=== PATIENT | male | born 1940 | race Caucasian/White ===

== ENCOUNTER 2018-09-26 13:26 | Inpatient (IN) | payer MEDICARE, BC ==
[~2018-09-26] VITALS: Ht 177.8 cm; Wt 117.8 kg
[~2018-09-26 13:26] MED LIST: ASPIRIN 32325 MG/TAB PO; ASPIRIN 81M81 MG/TA2 PO; BENICAR HCT 12.1 TA1 PO; BENICAR HCT 12.1 TAB PO; CRESTOR20 MG PO; FERROUS SU325 MG/TAB PO; FLOMAX 0.40.4 MG/CAP PO; LOPRESSOR 225 MG/TAB PO; NIACIN500 M3 PO; NIASPAN500 MG PO; PRAVACHOL 20MG20 MG PO; PRINZIDE 12.5 M1 TA1 PO; PRINZIDE 12.5 M1 TAB PO; THE MEDICINE S200 M2 PO; VITAMIN D 1001000 IU PO; VITAMIN D1000 IU PO; VYTORIN; ZYLOPRIM 100MG100 MG PO
[2018-09-26 13:28] VITALS: BP 113/70; PULSE 106; TEMP 98
[2018-09-26 17:16] LABS: BASO # 0.1 (0.0-0.2); BASO % 0.3 % (0.0-2.0); EOS % 0.2 % (0-4.0); GRAN # 13.8 (1.4-6.5); GRAN % 78.7 % (42.2-75.2); LYMPH # 1.5 (1.2-3.4); LYMPH % 8.5 % (20.0-51.0); MEAN CELL VOLUME 94 fl (80.0-100.0); MEAN CORPUSCULAR HGB CONC 32 g/dl (33.0-37.0); MONO # 1.4 (0.1-0.6); PLATELET COUNT 140 K/mm3 (130-400); RED BLOOD COUNT 2.98 M/mm3 (4.20-5.60); REDCELL DISTRIBUTION WIDTH-CV 16.1 % (11.5-14.5)
[2018-09-26 17:17] LABS: HEMATOCRIT 28.1 % (42.0-52.0); HEMOGLOBIN 9.1 g/dl (13.5-18.0); MEAN CORPUSCULAR HEMOGLOBIN 31 pg (27.0-31.0)
[2018-09-26 17:18] VITALS: BP 120/67; PULSE 85; TEMP 98.7
[2018-09-26 17:26] LABS: CREATININE, serum 1.71 mg/dL (0.66-1.25); MAGNESIUM 1.7 mg/dL (1.6-2.3); POTASSIUM 4.8 mmol/L (3.4-5.0)
[2018-09-26 19:43] VITALS: BP 108/64; PULSE 119; TEMP 98.9
[2018-09-26 22:24] VITALS: BP 115/71; PULSE 111; TEMP 98.7
[2018-09-26 23:06] VITALS: BP 110/66; PULSE 112; TEMP 99.4
[2018-09-26 23:25] LABS: HEMATOCRIT 24.5 % (42.0-52.0); HEMOGLOBIN 8.1 g/dl (13.5-18.0)
[2018-09-27] VITALS (16 sets, daily range): BP systolic 105–133; BP diastolic 54–82; PULSE 96–124; TEMP 97.9–99.3
[2018-09-27 06:39] LABS: CALCIUM 7.6 mg/dL (8.4-10.2); CREATININE, serum 1.77 mg/dL (0.66-1.25); MAGNESIUM 1.7 mg/dL (1.6-2.3); POTASSIUM 4.4 mmol/L (3.4-5.0)
[2018-09-27 06:42] LABS: MEAN CELL VOLUME 93 fl (80.0-100.0); MEAN CORPUSCULAR HGB CONC 33 g/dl (33.0-37.0); PLATELET COUNT 143 K/mm3 (130-400); RED BLOOD COUNT 2.19 M/mm3 (4.20-5.60); REDCELL DISTRIBUTION WIDTH-CV 16.9 % (11.5-14.5)
[2018-09-27 07:00] LABS: HEMATOCRIT 20.4 % (42.0-52.0); HEMOGLOBIN 6.7 g/dl (13.5-18.0); MEAN CORPUSCULAR HEMOGLOBIN 31 pg (27.0-31.0)
[2018-09-27 08:02] LABS: BAND 9 % (0-10); EOSINOPHIL 1 % (0-4); LYMPHOCYTE 9 % (20.0-51.0); METAMYELOCYTE 3 % (0-0); MYELOCYTE 1 % (0-0); NEUTROPHILS 74 % (42.0-75.2); OVALOCYTES 1+; PLATELET ESTIMATE NORMAL (NORMAL)
[2018-09-27 20:12] LABS: HEMATOCRIT 20.2 % (42.0-52.0); HEMOGLOBIN 6.7 g/dl (13.5-18.0)
[2018-09-28] VITALS (12 sets, daily range): BP systolic 114–135; BP diastolic 52–72; PULSE 87–99; TEMP 97.8–99.4
[2018-09-28 04:45] LABS: MEAN CELL VOLUME 93 fl (80.0-100.0); MEAN CORPUSCULAR HGB CONC 33 g/dl (33.0-37.0); MEAN PLATELET VOLUME 9.5 fl (7.4-10.4); PLATELET COUNT 106 K/mm3 (130-400); RED BLOOD COUNT 2.27 M/mm3 (4.20-5.60); REDCELL DISTRIBUTION WIDTH-CV 17.2 % (11.5-14.5)
[2018-09-28 04:47] LABS: HEMATOCRIT 21.2 % (42.0-52.0); MEAN CORPUSCULAR HEMOGLOBIN 31 pg (27.0-31.0)
[2018-09-28 05:08] LABS: ANISOCYTOSIS 2+; BAND 5 % (0-10); EOSINOPHIL 1 % (0-4); LYMPHOCYTE 16 % (20.0-51.0); METAMYELOCYTE 3 % (0-0); NEUTROPHILS 70 % (42.0-75.2); OVALOCYTES 2+; POLYCHROMASIA 1+
[2018-09-28 05:09] LABS: CALCIUM 7.7 mg/dL (8.4-10.2); CREATININE, serum 1.76 mg/dL (0.66-1.25); MAGNESIUM 1.9 mg/dL (1.6-2.3); POTASSIUM 4.1 mmol/L (3.4-5.0)
[2018-09-28 05:39] LABS: COLLECTION METHOD CLEAN CATCH
[2018-09-28 05:46] LABS: PH 6 (5-8); SQUAMOUS EPITHELIAL None Seen /hpf; URINE APPEARANCE Clear; URINE BACTERIA None Seen /hpf; URINE BILIRUBIN Negative (NEGATIVE); URINE BLOOD Negative (NEGATIVE); URINE COLOR Straw; URINE GLUCOSE Negative (NEGATIVE); URINE KETONE Negative (NEGATIVE); URINE LEUKOCYTE ESTERASE Negative (NEGATIVE); URINE NITRATE Negative (NEGATIVE); URINE PROTEIN(semi-quant) Negative (NEGATIVE); URINE UROBILINOGEN Negative (NEGATIVE)
[2018-09-28 17:16] LABS: HEMATOCRIT 23.8 % (42.0-52.0); HEMOGLOBIN 8.2 g/dl (13.5-18.0)
[2018-09-29] VITALS (11 sets, daily range): BP systolic 99–125; BP diastolic 51–73; PULSE 79–119; TEMP 97.9–99
[2018-09-29 08:38] LABS: MEAN CELL VOLUME 92 fl (80.0-100.0); MEAN CORPUSCULAR HGB CONC 33 g/dl (33.0-37.0); MEAN PLATELET VOLUME 9.9 fl (7.4-10.4); PLATELET COUNT 141 K/mm3 (130-400); RED BLOOD COUNT 2.24 M/mm3 (4.20-5.60); REDCELL DISTRIBUTION WIDTH-CV 16.9 % (11.5-14.5)
[2018-09-29 08:58] LABS: HEMATOCRIT 20.7 % (42.0-52.0); HEMOGLOBIN 6.9 g/dl (13.5-18.0); MEAN CORPUSCULAR HEMOGLOBIN 31 pg (27.0-31.0)
[2018-09-29 09:09] LABS: CALCIUM 8.1 mg/dL (8.4-10.2); CREATININE, serum 1.65 mg/dL (0.66-1.25); POTASSIUM 4.1 mmol/L (3.4-5.0)
[2018-09-29 09:59] LABS: BAND 9 % (0-10); BASOPHIL 1 % (0-2); EOSINOPHIL 5 % (0-4); LYMPHOCYTE 11 % (20.0-51.0); METAMYELOCYTE 1 % (0-0); MYELOCYTE 4 % (0-0); NEUTROPHILS 67 % (42.0-75.2); OVALOCYTES 1+; PLATELET ESTIMATE NORMAL (NORMAL); TEAR DROP CELLS 1+
[2018-09-29 18:26] LABS: HEMATOCRIT 21.8 % (42.0-52.0); HEMOGLOBIN 7.5 g/dl (13.5-18.0)
[2018-09-30] VITALS (14 sets, daily range): BP systolic 98–129; BP diastolic 52–74; PULSE 89–100; TEMP 96.4–98.7
[2018-09-30 06:28] LABS: MEAN CELL VOLUME 90 fl (80.0-100.0); MEAN CORPUSCULAR HGB CONC 34 g/dl (33.0-37.0); MEAN PLATELET VOLUME 10.1 fl (7.4-10.4); PLATELET COUNT 137 K/mm3 (130-400); RED BLOOD COUNT 2.28 M/mm3 (4.20-5.60); REDCELL DISTRIBUTION WIDTH-CV 16.6 % (11.5-14.5)
[2018-09-30 06:32] LABS: CALCIUM 8.1 mg/dL (8.4-10.2); CREATININE, serum 1.62 mg/dL (0.66-1.25); HEMATOCRIT 20.6 % (42.0-52.0); MEAN CORPUSCULAR HEMOGLOBIN 31 pg (27.0-31.0); POTASSIUM 3.8 mmol/L (3.4-5.0)
[2018-09-30 07:06] LABS: BAND 11 % (0-10); EOSINOPHIL 2 % (0-4); LYMPHOCYTE 11 % (20.0-51.0); METAMYELOCYTE 3 % (0-0); MYELOCYTE 1 % (0-0); NEUTROPHILS 64 % (42.0-75.2)
[2018-09-30 07:07] LABS: PLATELET ESTIMATE NORMAL (NORMAL)
[2018-09-30 07:08] LABS: ANISOCYTOSIS 1+
[2018-10-01 03:54] VITALS: BP 117/70; PULSE 90; TEMP 97.6
[2018-10-01 07:02] LABS: HEMATOCRIT 22.9 % (42.0-52.0); HEMOGLOBIN 7.6 g/dl (13.5-18.0); MEAN CELL VOLUME 93 fl (80.0-100.0); MEAN CORPUSCULAR HEMOGLOBIN 31 pg (27.0-31.0); MEAN CORPUSCULAR HGB CONC 33 g/dl (33.0-37.0); MEAN PLATELET VOLUME 9.5 fl (7.4-10.4); PLATELET COUNT 142 K/mm3 (130-400); RED BLOOD COUNT 2.46 M/mm3 (4.20-5.60); REDCELL DISTRIBUTION WIDTH-CV 16.6 % (11.5-14.5)
[2018-10-01 07:18] LABS: CREATININE, serum 1.59 mg/dL (0.66-1.25); POTASSIUM 3.7 mmol/L (3.4-5.0)
[2018-10-01 07:37] VITALS: BP 121/64; PULSE 78; TEMP 98.8
[2018-10-01 07:59] LABS: BAND 6 % (0-10); EOSINOPHIL 5 % (0-4); LYMPHOCYTE 20 % (20.0-51.0); METAMYELOCYTE 1 % (0-0); NEUTROPHILS 63 % (42.0-75.2); PLATELET ESTIMATE NORMAL (NORMAL)
[2018-10-01 08:00] LABS: HYPOCHROMIA 1+; POLYCHROMASIA 1+
[2018-10-01 11:14] VITALS: BP 109/54; PULSE 95; TEMP 98
[2018-10-01 13:25] LABS: HEMATOCRIT 24.1 % (42.0-52.0); HEMOGLOBIN 7.9 g/dl (13.5-18.0)
[2018-10-01 15:42] VITALS: BP 110/38; PULSE 100; TEMP 98.1
[2018-10-01 19:33] VITALS: BP 136/83; PULSE 99; TEMP 98.5
[2018-10-02 00:30] VITALS: BP 116/71; PULSE 89; TEMP 98.8
[2018-10-02 04:30] VITALS: BP 112/48; PULSE 89; TEMP 98.1
[2018-10-02 07:27] LABS: HEMATOCRIT 24.4 % (42.0-52.0); HEMOGLOBIN 7.8 g/dl (13.5-18.0); MEAN CELL VOLUME 95 fl (80.0-100.0); MEAN CORPUSCULAR HEMOGLOBIN 30 pg (27.0-31.0); MEAN CORPUSCULAR HGB CONC 32 g/dl (33.0-37.0); PLATELET COUNT 165 K/mm3 (130-400); RED BLOOD COUNT 2.58 M/mm3 (4.20-5.60)
[2018-10-02 07:36] VITALS: BP 123/67; PULSE 87; TEMP 98.5
[2018-10-02 07:36] LABS: CALCIUM 8.5 mg/dL (8.4-10.2); CREATININE, serum 1.48 mg/dL (0.66-1.25); POTASSIUM 3.8 mmol/L (3.4-5.0)
[2018-10-02 08:35] LABS: ANISOCYTOSIS 1+; BAND 6 % (0-10); EOSINOPHIL 7 % (0-4); HYPOCHROMIA 1+; LYMPHOCYTE 19 % (20.0-51.0); NEUTROPHILS 62 % (42.0-75.2); NUCLEATED RED BLOOD CELL 1 (0-6); PLATELET ESTIMATE NORMAL (NORMAL)
[2018-10-02 08:36] LABS: POLYCHROMASIA 1+
== END 2018-10-02 12:31 | disposition home or self-care (01) | DRG 378 ==
LOC: MEDICAL 13:26
PROVIDERS: Hospitalist; Internal Medicine; Internal Medicine Gastroenterology; Physician Assistant
PROC: 0DJ08ZZ Inspection of Upper Intestinal Tract, Via Natural or Artificial Opening Endoscopic (ICD-10-PCS; principal; 2018-09-27 16:15)
PROC: 0DJD8ZZ Inspection of Lower Intestinal Tract, Via Natural or Artificial Opening Endoscopic (ICD-10-PCS; 2018-09-27 16:15)
DX: K57.31 Diverticulosis of large intestine without perforation or abscess with bleeding (principal); D62 Acute posthemorrhagic anemia; R00.0 Tachycardia, unspecified; R11.2 Nausea with vomiting, unspecified; R53.81 Other malaise; E78.5 Hyperlipidemia, unspecified; N18.9 Chronic kidney disease, unspecified; I35.0 Nonrheumatic aortic (valve) stenosis; M10.9 Gout, unspecified; I12.9 Hypertensive chronic kidney disease with stage 1 through stage 4 chronic kidney disease, or unspecified chronic kidney disease
CPT/HCPCS: 99223-AI; 99232-AI; 99233-AI; 99239; A4216; C9113; J0696; J2704; J7030; P9016

== ENCOUNTER 2019-08-24 16:22 | Inpatient (IN) | payer MEDICARE, BC ==
[~2019-08-24] VITALS: Ht 180.3 cm; Wt 99.4 kg
[2019-08-24] VITALS (239 sets, daily range): BP systolic 112–127; BP diastolic 76–91; PULSE 98–113; TEMP 98.5–98.6; O2SAT 84–99
--- NOTE | 2019-08-24 18:00 | NUR ---
Patient arrives to ICU with [facility]. LR bolus, liter #2 infusing. He is alert and oriented with no complaints. Patient attached to cardio-resp monitor, call light within reach, oriented to room. Dr. Shine and Dr. Rivera called to notify of arrival.
[2019-08-24] MEDS ORDERED: LEXAPRO 10MG10 MG PO (18:39)
[2019-08-24] MEDS ORDERED: LOPRESSOR 225 MG/TAB PO (18:39)
--- NOTE | 2019-08-24 19:30 | NUR ---
Shift report given to QUAN Rhodes. Care turned over at this time.
--- NOTE | 2019-08-24 19:45 | NUR ---
Central line placement completed. Confirmed placement with Chest XRay.
[2019-08-24 20:45] LABS: ARTERIAL BLD GAS O2 SATURATION 93.8 % (92-100); ARTERIAL BLD GAS TCO2 CT 22.6; ARTERIAL BLOOD GAS HCO3 21.6 meq/L (22-26); ARTERIAL BLOOD GAS PCO2 33.5 mmHg (35-45); ARTERIAL BLOOD GAS PO2 72.9 mmHg (80-100); ARTERIAL BLOOD GAS pH 7.43 (7.35-7.45)
[2019-08-24 20:50] LABS: HEMATOCRIT 37.6 % (42.0-52.0); HEMOGLOBIN 12.3 g/dl (13.5-18.0); MEAN CELL VOLUME 88 fl (80.0-100.0); MEAN CORPUSCULAR HEMOGLOBIN 29 pg (27.0-31.0); MEAN CORPUSCULAR HGB CONC 33 g/dl (33.0-37.0); MEAN PLATELET VOLUME 9.9 fl (7.4-10.4); PLATELET COUNT 197 K/mm3 (130-400); RED BLOOD COUNT 4.26 M/mm3 (4.20-5.60); REDCELL DISTRIBUTION WIDTH-CV 18.6 % (11.5-14.5)
[2019-08-24 21:04] LABS: ALBUMIN 4.3 gm/dL (3.5-5.0); BILIRUBIN,TOTAL 0.9 mg/dL (0.0-1.0); CALCIUM 9.4 mg/dL (8.4-10.2); CREATININE, serum 2.35 (0.66-1.25); POTASSIUM 4.3 mmol/L (3.4-5.0)
[2019-08-24 21:05] LABS: INR 1.1 (0.8-3.0); PROTHROMBIN TIME 12.7 SECONDS (9.7-12.8)
[2019-08-24 21:15] LABS: TROPONIN-I 0.033 ng/mL (0.000-0.035)
[2019-08-24 22:17] LABS: BAND 5 % (0-10); LYMPHOCYTE 5 % (20.0-51.0); NEUTROPHILS 80 % (42.0-75.2); PLATELET ESTIMATE NORMAL (NORMAL)
[2019-08-24 22:18] LABS: OVALOCYTES 2+
[2019-08-24 22:19] LABS: TOXIC GRANULATION PRESENT
[2019-08-25] VITALS (735 sets, daily range): BP systolic 108–140; BP diastolic 61–90; PULSE 81–101; TEMP 98–99; O2SAT 81–98
[2019-08-25 05:25] LABS: BASO % 0.3 % (0.0-2.0); GRAN # 10.6 (1.4-6.5); GRAN % 88.7 % (42.2-75.2); HEMOGLOBIN 10.7 g/dl (13.5-18.0); LYMPH # 0.5 (1.2-3.4); LYMPH % 3.8 % (20.0-51.0); MEAN CELL VOLUME 90 fl (80.0-100.0); MEAN CORPUSCULAR HEMOGLOBIN 29 pg (27.0-31.0); MEAN CORPUSCULAR HGB CONC 32 g/dl (33.0-37.0); MEAN PLATELET VOLUME 9.6 fl (7.4-10.4); MONO # 0.7 (0.1-0.6); MONO % 5.9 % (1.7-9.3); PLATELET COUNT 165 K/mm3 (130-400); RED BLOOD COUNT 3.69 M/mm3 (4.20-5.60); REDCELL DISTRIBUTION WIDTH-CV 18.5 % (11.5-14.5)
[2019-08-25 05:27] LABS: ARTERIAL BLD GAS O2 SATURATION 95.4 % (92-100); ARTERIAL BLD GAS TCO2 CT 24.9; ARTERIAL BLOOD GAS BASE EXCESS -1.2 (-2-2); ARTERIAL BLOOD GAS HCO3 23.7 meq/L (22-26); ARTERIAL BLOOD GAS PCO2 40.3 mmHg (35-45); ARTERIAL BLOOD GAS PO2 81.5 mmHg (80-100); ARTERIAL BLOOD GAS pH 7.39 (7.35-7.45)
--- NOTE | 2019-08-25 05:30 | NUR ---
STARTED INSULIN DRIP, DOUBLE CHECKED WITH QUAN LORA.
[2019-08-25 05:36] LABS: HEMATOCRIT 33.3 % (42.0-52.0)
[2019-08-25 05:38] LABS: ALBUMIN 3.6 gm/dL (3.5-5.0); BILIRUBIN,TOTAL 0.7 mg/dL (0.0-1.0); CALCIUM 8.3 mg/dL (8.4-10.2); CREATININE, serum 2.14 (0.66-1.25); POTASSIUM 4.5 mmol/L (3.4-5.0); TOTAL PROTEIN 6.1 gm/dL (6.4-8.2)
[2019-08-25 05:41] LABS: INR 1.1 (0.8-3.0); PROTHROMBIN TIME 12.3 SECONDS (9.7-12.8)
--- NOTE | 2019-08-25 08:45 | NUR ---
AND TEAM ROUNDING AT PATIENT BEDSIDE.
--- NOTE | 2019-08-25 09:52 | NUR ---
Initial visit; Patient thanked Refrigerator Assembler for looking in on him and offering God's blessings.
--- NOTE | 2019-08-25 16:12 | NUR ---
STROKE BELT SANDER OPERATOR student met with the patient to discuss a discharge plan. The patient lives in [place] with his , Sloane. The patient has a cane and a walker and reports independence with ADLs. The patient's PCP is Dr. Mcguire and patient receives medications from [facility] in [place] with no difficulties. The patient has advanced directives in the EMR. The patient plans to return home upon discharge with Sloane providing transportation. business services director will continue to follow to ensure a safe discharge.
--- NOTE | 2019-08-25 17:00 | NUR ---
INCREASED FENTANYL DRIP TO [facility].
--- NOTE | 2019-08-25 19:33 | NUR ---
Report called to Candida GLASS. Transfered to room 318 via wheel chair by Robert GLASS
--- NOTE | 2019-08-25 21:00 | NUR ---
Patient admitted to medical floor from ICU. Patient stated he has been in the room for awhile. Staff was not notified of patient arrival. Emotional support given to patient, as he was a little upset because of this. Denies pain. VS stable. Urostomy site leaking, site reinforced per pt request. Adapter applied to end of urostomy bag to drain into de la fuente bag at night, per pt request. Right IJ flushed, patent. HR irregular, with some pauses upon auscultation. Murmur also noted. Will notify Dr. Rogers, and obtain order for tele. Patient denies further needs at this time. Will continue to monitor.
[2019-08-26 01:28] VITALS: BP 100/54; PULSE 93; TEMP 97.6
[2019-08-26 03:40] VITALS: BP 109/65; PULSE 92; TEMP 97.6
--- NOTE | 2019-08-26 03:52 | NUR ---
Per telemetry, patient having frequent pauses on tele. Patient in bed, sleeping. Arouses easily, oriented x4. Denies pain. VS stable. Dr. Rogers notified of frequent pauses auscultated on admission assessment, which resulted in tele being ordered. Will continue to assess.
--- NOTE | 2019-08-26 05:49 | NUR ---
Patient in bed, awake. Breath sounds wheezy. Auscultated lungs, clear. Patient denies SOB. Oxygen had fallen off per pt, 91% on room air. Oxygen placed on patient, 94% on 2L (previously on 3L). Denies further needs at this time, will continue to monitor.
[2019-08-26 07:13] LABS: MEAN CELL VOLUME 94 fl (80.0-100.0); MEAN CORPUSCULAR HGB CONC 31 g/dl (33.0-37.0); MEAN PLATELET VOLUME 10.5 fl (7.4-10.4); PLATELET COUNT 141 K/mm3 (130-400); RED BLOOD COUNT 3.33 M/mm3 (4.20-5.60); REDCELL DISTRIBUTION WIDTH-CV 18.3 % (11.5-14.5)
[2019-08-26 07:17] LABS: HEMATOCRIT 31.2 % (42.0-52.0); HEMOGLOBIN 9.6 g/dl (13.5-18.0); MEAN CORPUSCULAR HEMOGLOBIN 29 pg (27.0-31.0)
[2019-08-26 07:19] LABS: PROTHROMBIN TIME 12.2 SECONDS (9.7-12.8)
[2019-08-26 07:34] LABS: ALBUMIN 3.1 gm/dL (3.5-5.0); BILIRUBIN,TOTAL 0.4 mg/dL (0.0-1.0); CALCIUM 8.1 mg/dL (8.4-10.2); CREATININE, serum 1.68 (0.66-1.25); POTASSIUM 4.3 mmol/L (3.4-5.0); TOTAL PROTEIN 5.5 gm/dL (6.4-8.2)
[2019-08-26 07:49] LABS: ANISOCYTOSIS 1+; BAND 16 % (0-10); EOSINOPHIL 3 % (0-4); HYPOCHROMIA 2+; LYMPHOCYTE 15 % (20.0-51.0); MYELOCYTE 2 % (0-0); NEUTROPHILS 55 % (42.0-75.2); PLATELET ESTIMATE NORMAL (NORMAL)
[2019-08-26 07:50] LABS: OVALOCYTES 1+; POIKILOCYTOSIS 1+
[2019-08-26 08:11] VITALS: BP 141/56; PULSE 61; TEMP 98.8
--- NOTE | 2019-08-26 08:31 | NUR ---
PATIENT ASSESSMENT COMPLETED. HE IS UP IN CHAIR WAITING FOR BREAKFAST. DENIES ANY PAIN OR SOB AT REST. O2 AT 2L VIA NASAL CANNULA. NO OTHER NEEDS AT THIS TIME.
--- NOTE | 2019-08-26 12:31 | NUR ---
PATIENT IS OFF CONTACT ISOLATION HE HAS TWO SAMPLES THAT ARE NEGATIVE FOR MRSA
[2019-08-26 13:00] VITALS: BP 138/79; PULSE 84; TEMP 98.4
[2019-08-26] MEDS ORDERED: AMOXICILLIN 8751 TAB PO (13:22)
--- NOTE | 2019-08-26 14:51 | NUR ---
PT SPO2 93% ON ROOM AIR AT REST. PT WALKED APPROX 40 FT ON ROOM AIR SPO2 92%
--- NOTE | 2019-08-26 16:30 | NUR ---
PATIENT DISCHARGED TO HOME WITH . I HAVE CALLED THE SCRIPT TO [facility] BECAUSE [facility] WAS CLOSED PER PATIENT PREFERANCE. THEY DENY FURTHER QUESTIONS. PAPERWORK SENT WITH THEM ALSO.
--- NOTE | 2019-08-26 17:00 | NUR ---
PATIENT DISCHARGED TO HOME VIA WHEELCHAIR. AT HIS SIDE. DENIES OTHER NEEDS. 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
== END 2019-08-26 17:00 | disposition home or self-care (01) | DRG 872 ==
LOC: ICU 16:22 → MEDICAL 08-25 20:56
PROVIDERS: Internal Medicine; Surgery; ADMIT Student in an Organized Health Care Education/Training Program
PROC: 02HV33Z Insertion of Infusion Device into Superior Vena Cava, Percutaneous Approach (ICD-10-PCS; principal; 2019-08-24)
DX: A41.9 Sepsis, unspecified organism (principal); N17.9 Acute kidney failure, unspecified; K43.6 Other and unspecified ventral hernia with obstruction, without gangrene; R65.20 Severe sepsis without septic shock; M10.9 Gout, unspecified; E78.5 Hyperlipidemia, unspecified; N18.9 Chronic kidney disease, unspecified; I12.9 Hypertensive chronic kidney disease with stage 1 through stage 4 chronic kidney disease, or unspecified chronic kidney disease; Z93.2 Ileostomy status; K43.5 Parastomal hernia without obstruction or gangrene; Z86.73 Personal history of transient ischemic attack (TIA), and cerebral infarction without residual deficits; Z88.8 Allergy status to other drugs, medicaments and biological substances; Z85.50 Personal history of malignant neoplasm of unspecified urinary tract organ
CPT/HCPCS: 99232-AI; 99239; J1644; J1720; J1815; J2543; J7030